=== PATIENT | female | born 1980 | race Two or more races ===

== ENCOUNTER 2017-08-23 20:10 | Emergency (ER) | payer OTHER ==
[2017-08-23 20:24] VITALS: BP 125/88; PULSE 85; TEMP 98.5; BMI 30.2
--- NOTE | 2017-08-23 20:24 | PDOC ---
Rapid Medical Evaluation Time Seen by Provider: 08/23/17 20:20 Medical Evaluation: 08/23/17 20:20 I performed a brief in-person evaluation of this patient. This patient presents with a chief complaint of intermittent chest palpitations, tightness and pain to left rib area. Also reports soreness to entire back since Wednesday. Denies shortness of breath dizziness or nausea Pertinent physical exam findings: NAD lungs clear bilaterally, non tender chest, no tenderness in mid spine or over rib areas heart [id number] non tender abdomen I have ordered the following: ekg The patient will proceed to the ED for further evaluation.
[2017-08-24] MEDS ORDERED: ASPIRIN 81 MG CHEWABLE TABLETS PO ONE (00:25)
[2017-08-24] MEDS ORDERED: ASPIRIN 81 MG CHEWABLE TABLETS ONE (00:33)
[2017-08-24 01:01] LABS: BASO % 0.3 % (0-2.0); EOS % 0.7 % (0-4.5); HEMATOCRIT 40.4 % (32.4-45.2); HEMOGLOBIN 13.5 GM/dL (10.7-15.3); LYMPH % 21.7 % (8-40); MCH 31.5 pg (25.7-33.7); MCHC 33.3 g/dl (32.0-36.0); MEAN CELL VOLUME 94.5 fl (80-96); MEAN PLT VOLUME 8.3 fl (7.5-11.1); MONO % 7.1 % (3.8-10.2); NEUT % 70.2 % (42.8-82.8); PLATELET COUNT 293 K/MM3 (134-434); RBC 4.28 M/mm3 (3.60-5.2); RDW 12.4 % (11.6-15.6); WHITE BLOOD COUNT 10.1 K/mm3 (4.0-10.0)
[2017-08-24 01:13] LABS: INR 1.03 (0.82-1.09); PROTHROMBIN TIME (PATIENT) 11.6 SEC (9.98-11.88)
[2017-08-24 01:26] LABS: ALBUMIN 4.1 g/dl (3.4-5.0); ANION GAP 9 (8-16); BILIRUBIN,TOTAL 0.6 mg/dL (0.2-1.0); BLOOD UREA NITROGEN 10 mg/dL (7-18); CHLORIDE 103 mmol/L (98-107); CO2 28 mmol/L (21-32); CREATININE 0.8 mg/dL (0.55-1.02); GLUCOSE,RANDOM 96 mg/dL (74-106); MAGNESIUM 2.4 mg/dL (1.8-2.4); SGOT/AST 19 U/L (15-37); SGPT/ALT 24 U/L (12-78); SODIUM 140 mmol/L (136-145); TOT PROT 7.5 g/dl (6.4-8.2)
[2017-08-24 01:29] LABS: ALK PHOS 46 U/L (45-117)
--- NOTE | 2017-08-24 01:52 | PDOC ---
History of Present Illness <RobCorinne Dali - Last Filed: 08/24/17 02:01> - General History Source: Patient Exam Limitations: No Limitations <Brennan Jeffries - Last Filed: 08/24/17 02:10> - General Chief Complaint: Chest Pain Stated Complaint: CHEST PAIN Time Seen by Provider: 08/23/17 20:20 - History of Present Illness Initial Comments: 08/24/17 02:09 Patient is a 37 year old female with a significant past medical history of who presents to the ED with complaints of intermittent chest pain that began 1 week ago. Patient reports experiencing chest pain last wednesday that began to increase in pain over the course of the week. She reports experiencing chest pain this afternoon that she states began to radiate down her shoulders bilaterally and down her right arm. Patient reports experiencing intermittent violent body shakes that she states begin suddenly and make it look like she is cold. Patient reports experiencing intermittent throbbing that she states occurs in different parts of her body. She reports experiencing these symptoms for the past 3 years but is unsure why they occur. Patient reports going to Neuro consult, Cardio consult, Echo done, stress test done. She reports that she is worried that she is showing symptoms of MS. Denies pacemaker. Denies SOB. Denies fevers, chills. Denies nausea, vomiting. Denies any other symptoms. Allergies: None Social history: No smoking. Social drinker. No alcohol. Surgical history: None PMD: None (NeshaBrennan) Past History - Past Medical History COPD: No - Suicide/Smoking/Psychosocial Hx Smoking History: Never smoked Information on smoking cessation initiated: No Hx Alcohol Use: Yes (socially) Drug/Substance Use Hx: No <RobCorinne Dali - Last Filed: 08/24/17 02:01> <Nesha,Brennan - Last Filed: 08/24/17 02:10> - Past Medical History Allergies/Adverse Reactions: Allergies Allergy/AdvReac Type Severity Reaction Status Date / Time No Known Allergies Allergy Verified 08/23/17 20:20 Home Medications: Ambulatory Orders NK [No Known Home Medication] 08/24/17 Review of Systems <RobCorinnedana Mcnally - Last Filed: 08/24/17 02:01> - Review of Systems Able to Perform ROS?: Yes All Other Systems: Reviewed and Negative <Brennan Jeffries - Last Filed: 08/24/17 02:10> - Review of Systems Comments:: 08/24/17 02:09 CONSTITUTIONAL: +Body shakes. Absent: fever, chills, diaphoresis, generalized weakness, malaise, loss of appetite HEENT: Absent: rhinorrhea, nasal congestion, throat pain, throat swelling, difficulty swallowing, mouth swelling, ear pain, eye pain, visual Changes CARDIOVASCULAR: +Chest pain. Absent: , syncope, palpitations, irregular heart rate, lightheadedness, peripheral edema RESPIRATORY: Absent: cough, shortness of breath, dyspnea with exertion, orthopnea, wheezing, stridor, hemoptysis GASTROINTESTINAL: Absent: abdominal pain, abdominal distension, nausea, vomiting, diarrhea, constipation, melena, hematochezia GENITOURINARY: Absent: dysuria, frequency, urgency, hesitancy, hematuria, flank pain, genital pain MUSCULOSKELETAL: +Right arm pain. +bilateral shoulder pain. Absent: myalgia, arthralgia, joint swelling SKIN: Absent: rash, itching, pallor HEMATOLOGIC/IMMUNOLOGIC: Absent: easy bleeding, easy bruising, lymphadenopathy, frequent infections ENDOCRINE: Absent: unexplained weight gain, unexplained weight loss, heat intolerance, cold intolerance NEUROLOGIC: Absent: headache, focal weakness or paresthesias, dizziness, unsteady gait, seizure, mental status changes, bladder or bowel incontinence PSYCHIATRIC: Absent: anxiety, depression, suicidal or homicidal ideation, hallucinations. (Brennan Jeffries) *Physical Exam <Corinne Rivas - Last Filed: 08/24/17 02:01> <Brennan Jeffries - Last Filed: 08/24/17 02:10> - Vital Signs Last Vital Signs Temp Pulse Resp BP Pulse Ox 98.5 F 85 16 125/88 99 08/23/17 20:21 08/23/17 20:21 08/23/17 20:21 08/23/17 20:21 08/23/17 20:21 - Physical Exam Comments: 08/24/17 02:09 GENERAL: Well developed, well nourished. Awake and alert. No acute distress. HEENT: Normocephalic, atraumatic. PERRLA, EOMI. No conjunctival pallor. Sclera are non- icteric. Moist mucous membranes. Oropharynx is clear. NECK: No bruise. Supple. Full ROM. No JVD. Carotid pulses 2+ and symmetric, without bruits. No thyromegaly. No lymphadenopathy. CARDIOVASCULAR: Regular rate and rhythm. No murmurs, rubs, or gallops. Distal pulses are 2+ and symmetric. PULMONARY: No evidence of respiratory distress. Lungs clear to auscultation bilaterally. No wheezing, rales or rhonchi. ABDOMINAL: Soft. Non-tender. Non-distended. No rebound or guarding. No organomegaly. Normoactive bowel sounds. MUSCULOSKELETAL: Normal range of motion at all joints. No bony deformities or tenderness. No CVA tenderness. EXTREMITIES: +Slight tremor No cyanosis. No clubbing. No edema. No calf tenderness. SKIN: Warm and dry. Normal capillary refill. No rashes. No jaundice. NEUROLOGICAL: Alert, awake, appropriate. Cranial nerves 2-12 intact. No deficits to light touch and temperature in face, upper extremities and lower extremities. No motor deficits in the in face, upper extremities and lower extremities. Normoreflexic in the upper and lower extremities. Normal speech. Toes are down- going bilaterally. Gait is normal without ataxia. PSYCHIATRIC: Cooperative. Good eye contact. Appropriate mood and affect. (Brennan Jeffries) ED Treatment Course - LABORATORY CBC & Chemistry Diagram: 08/24/17 00:51 08/24/17 00:51 <Corinne Rivas - Last Filed: 08/24/17 02:01> - LABORATORY CBC & Chemistry Diagram: 08/24/17 00:51 08/24/17 00:51 <Brennan Jeffries - Last Filed: 08/24/17 02:10> - ADDITIONAL ORDERS Additional order review: Laboratory Results 08/24/17 08/24/17 08/23/17 00:51 00:51 20:25 PT with INR 11.60 INR 1.03 Sodium 140 Potassium 4.0 Chloride 103 Carbon Dioxide 28 Anion Gap 9 BUN 10 Creatinine 0.8 Creat Clearance w eGFR > 60 Random Glucose 96 Calcium 9.0 Magnesium 2.4 Total Bilirubin 0.6 AST 19 ALT 24 Alkaline Phosphatase 46 Creatine Kinase 95 Troponin I < 0.02 Total Protein 7.5 Albumin 4.1 Urine HCG, Qual Negative 08/24/17 00:51 RBC 4.28 MCV 94.5 MCHC 33.3 RDW 12.4 MPV 8.3 Neutrophils % 70.2 Lymphocytes % 21.7 Monocytes % 7.1 Eosinophils % 0.7 Basophils % 0.3 - Medications Given in the ED: ED Medications Discontinued Medications Generic Name Dose Route Start Last Admin Trade Name Mj PRN Reason Stop Dose Admin Aspirin 162 mg 08/24/17 00:25 08/24/17 00:50 Asa - PO 08/24/17 00:26 162 mg ONCE ONE Administration *DC/Admit/Observation/Transfer <Corinne Rivas - Last Filed: 08/24/17 02:01> <Brennan Jeffries - Last Filed: 08/24/17 02:10> Diagnosis at time of Disposition: Palpitations - Discharge Dispostion Disposition: HOME Condition at time of disposition: Stable - Referrals Referrals: Federico Jimenez MD [Staff Physician] - Vinod Chaves MD [Staff Physician] - Lico Hernandez MD [Staff Physician] - Malik Ulrich DO [Staff Physician] - - Patient Instructions Printed Discharge Instructions: DI for Palpitations Additional Instructions: please followup with the cardiologists I have given you several names of neurologists for further evaluation of your concerns - Attestations Scribe Attestion: 08/24/17 02:10 Documentation prepared by Brennan Jeffries, acting as medical appointment scheduler for Corinne Rivas MD/. (Brennan Jeffries)
--- NOTE | 2017-08-24 10:39 | EKG ---
Test Reason : Blood Pressure : / mmHG Vent. Rate : 085 BPM Atrial Rate : 085 BPM P-R Int : 144 ms QRS Dur : 080 ms QT Int : 350 ms P-R-T Axes : 036 036 023 degrees QTc Int : 416 ms NORMAL SINUS RHYTHM NORMAL ECG NO PREVIOUS ECGS AVAILABLE Confirmed by MD Hodges Daniel ([id number]) on 08/24/2017 10:39:19 AM Referred By: Confirmed By:Austin Hodges MD
== END 2017-08-24 02:15 | disposition home or self-care (01) ==
LOC: JER 20:10
DX: R00.2 Palpitations (principal)
CPT/HCPCS: 36415; 80053; 82550; 83735; 84484; 84703; 85025; 85610; 93005; 93010; 99282-25

== ENCOUNTER 2018-12-19 12:02 | Emergency (ER) | payer OTHER ==
[2018-12-19 12:14] VITALS: BMI 28.3
[2018-12-19 13:10] LABS: BASO % 0.6 % (0-2.0); EOS % 1.2 % (0-4.5); HEMATOCRIT 43.5 % (32.4-45.2); HEMOGLOBIN 14.3 GM/dL (10.7-15.3); LYMPH % 13.3 % (8-40); MCH 31.5 pg (25.7-33.7); MCHC 32.8 g/dl (32.0-36.0); MEAN CELL VOLUME 96.1 fl (80-96); MEAN PLT VOLUME 8.2 fl (7.5-11.1); MONO % 4.7 % (3.8-10.2); NEUT % 80.2 % (42.8-82.8); PLATELET COUNT 351 K/MM3 (134-434); RBC 4.52 M/mm3 (3.60-5.2); RDW 12.8 % (11.6-15.6); WHITE BLOOD COUNT 10.5 K/mm3 (4.0-10.0)
[2018-12-19 13:45] LABS: ALBUMIN 4.1 g/dl (3.4-5.0); ALK PHOS 54 U/L (45-117); ANION GAP 5 MMOL/L (8-16); BILIRUBIN,TOTAL 0.4 mg/dL (0.2-1); BLOOD UREA NITROGEN 11 mg/dL (7-18); CALCIUM 9.5 mg/dL (8.5-10.1); CHLORIDE 106 mmol/L (98-107); CO2 27 mmol/L (21-32); CREATININE 0.8 mg/dL (0.55-1.3); GLUCOSE,RANDOM 92 mg/dL (74-106); MAGNESIUM 2.4 mg/dL (1.8-2.4); POTASSIUM 4.2 mmol/L (3.5-5.1); SGOT/AST 15 U/L (15-37); SGPT/ALT 18 U/L (13-61); SODIUM 138 mmol/L (136-145); TOT PROT 7.6 g/dl (6.4-8.2)
--- NOTE | 2018-12-19 14:19 | PDOC ---
History of Present Illness - General Chief Complaint: Chest Pain Stated Complaint: CHEST PAIN Time Seen by Provider: 12/19/18 12:29 History Source: Patient Exam Limitations: No Limitations - History of Present Illness Initial Comments: 12/19/18 13:13 38-year-old female with complaints of left upper chest wall pain worsened with movement along with intermittent right sided head throbbing pressure for the past few weeks. Patient states has had no visual changes, dizziness, nausea, difficulty breathing, cough, shortness of breath, abdominal pain, urinary complaints or vaginal discharge. Patient does state had a termination of 3 weeks ago and unsure if this is related but denies any fever, chills or weakness. Timing/Duration: other Severity: mild Associated Symptoms: reports: chest pain, headaches Past History - Travel Traveled outside of the country in the last 30 days: No Close contact w/someone who was outside of country & ill: No - Past Medical History Allergies/Adverse Reactions: Allergies Allergy/AdvReac Type Severity Reaction Status Date / Time No Known Allergies Allergy Verified 12/19/18 12:10 Home Medications: Ambulatory Orders NK [No Known Home Medication] 08/24/17 COPD: No - Immunization History Immunization Up to Date: Yes - Suicide/Smoking/Psychosocial Hx Smoking History: Never smoked Hx Alcohol Use: No Drug/Substance Use Hx: No Patient Lives Alone: Yes Lives with/in: lives alone Review of Systems - Review of Systems Able to Perform ROS?: Yes Constitutional: No: Symptoms Reported HEENTM: No: Symptoms Reported Respiratory: No: Symptoms reported Cardiac (ROS): Yes: Chest Pain ABD/GI: No: Symptoms Reported : No: Symptoms Reported Musculoskeletal: No: Symptoms Reported Integumentary: No: Symptoms Reported Neurological: Yes: Headache Hematologic/Lymphatic: No: Symptoms Reported *Physical Exam - Vital Signs Last Vital Signs Temp Pulse Resp BP Pulse Ox 97.8 F 79 18 123/75 99 12/19/18 12:10 12/19/18 12:10 12/19/18 12:10 12/19/18 12:10 12/19/18 12:10 - Physical Exam General Appearance: Yes: Nourished, Appropriately Dressed. No: Apparent Distress HEENT: positive: EOMI, MELINA Neck: positive: Normal Thyroid. negative: Tender, Decreased range of motion Respiratory/Chest: positive: Chest Tender (nichelle chest at 2nd rib lateral of sternum extending laterally of MCL), Lungs Clear, Normal Breath Sounds, Accessory Muscle Use. negative: Respiratory Distress Cardiovascular: positive: Regular Rhythm, Regular Rate. negative: Murmur Gastrointestinal/Abdominal: positive: Soft. negative: Tenderness Extremity: positive: Normal Capillary Refill. negative: Pedal Edema Integumentary: positive: Normal Color, Warm, Moist Neurologic: positive: Motor Strength 5/5 (ambulatory) ED Treatment Course - LABORATORY CBC & Chemistry Diagram: 12/19/18 12:52 12/19/18 12:52 - ADDITIONAL ORDERS Additional order review: Laboratory Results 12/19/18 12:52 Sodium 138 Potassium 4.2 Chloride 106 Carbon Dioxide 27 Anion Gap 5 L BUN 11 Creatinine 0.8 Est GFR (CKD-EPI)AfAm 109.16 Est GFR (CKD-EPI)NonAf 94.18 Random Glucose 92 Calcium 9.5 Magnesium 2.4 Total Bilirubin 0.4 AST 15 ALT 18 Alkaline Phosphatase 54 Creatine Kinase 91 Troponin I < 0.02 Total Protein 7.6 Albumin 4.1 TSH 0.91 Beta HCG, Quant 15.2 12/19/18 12:52 RBC 4.52 MCV 96.1 H MCHC 32.8 RDW 12.8 MPV 8.2 Neutrophils % 80.2 Lymphocytes % 13.3 D Monocytes % 4.7 Eosinophils % 1.2 Basophils % 0.6 Medical Decision Making - Medical Decision Making 12/19/18 13:17 Chief complaint. Right-sided headache and left-sided chest discomfort for the past weeks intermittently. No meds taken. Exam. Reproducible left upper chest wall pain otherwise no acute findings. Plan: Labs, beta hCG, EKG and offered medication for discomfort but refused 12/19/18 14:18 Laboratory Tests 12/19/18 12/19/18 12:52 12:52 WBC 10.5 H RBC 4.52 Hct 43.5 MCV 96.1 H MCH 31.5 RDW 12.8 Plt Count 351 MPV 8.2 Absolute Neuts (auto) 8.4 H Troponin I < 0.02 Total Protein 7.6 TSH 0.91 Beta HCG, Quant 15.2 Discussed results of patient. Patient will follow-up with neurologist in regards to headache. Patient be given some information on costochondritis. *DC/Admit/Observation/Transfer Diagnosis at time of Disposition: Costal chondritis - Discharge Dispostion Disposition: HOME Condition at time of disposition: Good - Referrals Referrals: Jitendra Caceres MD [Staff Physician] - - Patient Instructions Printed Discharge Instructions: DI for Costochondritis Additional Instructions: At this time I recommend Tylenol for discomfort of your chest wall pain. Otherwise you can follow up with referred neurologist or return to the ER if your symptoms worsen to the point that you cannot function, had difficulty breathing, or have repetitive vomiting. - Post Discharge Activity
[2018-12-19 14:40] VITALS: BP 117/79; PULSE 78; TEMP 98.9
--- NOTE | 2018-12-19 15:09 | EKG ---
Test Reason : Blood Pressure : / mmHG Vent. Rate : 072 BPM Atrial Rate : 072 BPM P-R Int : 146 ms QRS Dur : 072 ms QT Int : 364 ms P-R-T Axes : 032 027 022 degrees QTc Int : 398 ms NORMAL SINUS RHYTHM CANNOT RULE OUT ANTERIOR INFARCT , AGE UNDETERMINED ABNORMAL ECG WHEN COMPARED WITH ECG OF 23-AUG-2017 20:15, NO SIGNIFICANT CHANGE WAS FOUND Confirmed by DAYANARA JACKSON MD ([id number]) on 12/19/2018 3:09:08 PM Referred By: Confirmed By:DAYANARA JACKSON MD
== END 2018-12-19 14:38 | disposition home or self-care (01) ==
LOC: JER 12:02
DX: M94.0 Chondrocostal junction syndrome [Tietze] (principal)
CPT/HCPCS: 36415; 80053; 82550; 83735; 84443; 84484; 84702; 85025; 93005; 93010; 99283-25